=== PATIENT | male | born 1930 | race African-American/Black ===

== ENCOUNTER → 2016-08-10 | Outpatient (CLI) | payer MEDICARE, BC ==
--- NOTE | 2016-08-10 13:45 | XCELERA REPORT ---
[address] [address] Upper Extremity Venous Evaluation Name: KENN CANALES Age: 85 yrs Gender: Male : 1930 Patient Status: Outpatient Patient Location: Study Date: 08/10/2016 01:19 PM Procedure: Unilateral duplex scan of the left upper extremity veins was performed, including responses to compression and other maneuvers. Reason For Study: LUE PAIN SWELLING Ordering Physician: GONZALEZ KING Performed By: Gaby Joe Left Sided Venous Evaluation Normal vessel filling wall to wall, compression and augmentation as well as Colour flow down to the forearm veins. Interpretation Summary Normal compression, patency, spontaneous and phasic flow of the left upper extremity veins. : GONZALEZ KING > Duncan Valentin
== END ==
LOC: SP 12:52
PROVIDERS: ATTEND Internal Medicine Medical Oncology
DX: M79.602 Pain in left arm (principal); M79.89 Other specified soft tissue disorders
CPT/HCPCS: 93971

== ENCOUNTER 2016-10-28 11:32 | Inpatient (IN) | payer MEDICARE, BC ==
--- NOTE | 2016-10-28 12:51 | ER Document Report ---
ED Medical Screen (RME) - General Mode of Arrival: Ambulatory Information source: Patient, Relative - Niece TRAVEL OUTSIDE OF THE [place] IN LAST 30 DAYS: No - HPI Patient complains to provider of: Cough and weakness Associated Symptoms: Other - see notes above <TIMOTHY REYES - Last Filed: 10/28/16 21:33> <YOLANDACHRISTIANAKATHI - Last Filed: 10/28/16 21:35> - General Chief Complaint: Direct Admit / Private MD Stated Complaint: DIRECT ADMIT Notes: 86-year-old male presents to the ED accompanied by his niece who states that they were sent to radiology by Dr. Barrientos to receive a CT scan over concerns of possible pneumonia and possible lung cancer recurrence and was sent to the ED for direct admit after Dr. Barrientos examined the scan. The niece reports that the patient has a cough, weakness, and poor appetite. Patient denies any chest pain. (TIMOTHY REYES) - Related Data Allergies/Adverse Reactions: No Known Allergies Allergy (Verified 10/28/16 12:28) Past Medical History - General Information source: Patient - Social History Family history: Reviewed & Not Pertinent - Past Medical History Cardiac Medical History: Reports: Hx Hypertension Denies: Hx Heart Attack Pulmonary Medical History: Denies: Hx Asthma Neurological Medical History: Denies: Hx Cerebrovascular Accident, Hx Seizures Endocrine Medical History: Reports: Hx Hypothyroidism Renal/ Medical History: Denies: Hx Peritoneal Dialysis GI Medical History: Reports: Hx Colonoscopy. Denies: Hx Hepatitis, Hx Hiatal Hernia, Hx Ulcer Infectious Medical History: Denies: Hx Hepatitis Past Surgical History: Denies: Hx Open Heart Surgery, Hx Pacemaker <TIMOTHY REYES - Last Filed: 10/28/16 21:33> Review of Systems - Review of Systems Constitutional: No symptoms reported EENT: No symptoms reported Cardiovascular: No symptoms reported. denies: Chest pain Respiratory: See HPI, Cough Gastrointestinal: See HPI, Poor appetite Genitourinary: No symptoms reported Male Genitourinary: No symptoms reported Musculoskeletal: No symptoms reported Skin: No symptoms reported Hematologic/Lymphatic: No symptoms reported Neurological/Psychological: See HPI, Weakness -: Yes All other systems reviewed and negative <TIMOTHY REYES - Last Filed: 10/28/16 21:33> Physical Exam - General General appearance: Alert In distress: None - Respiratory Respiratory status: No respiratory distress. No: Cyanosis Breath sounds: Other - Crackles to the right lower lobe. No: Rhonchi, Wheezing - Cardiovascular Rhythm: Regular Heart sounds: Normal auscultation Murmur: No Friction rub: No Gallop: None auscultated <TIMOTHY REYES - Last Filed: 10/28/16 21:33> Course - Laboratory Result Diagrams: 10/28/16 13:17 10/28/16 13:17 <TIMOTHY REYES - Last Filed: 10/28/16 21:33> - Laboratory Result Diagrams: 10/28/16 13:17 10/28/16 13:17 <KATHI RICARDO - Last Filed: 10/28/16 21:35> - Re-evaluation Re-evalutation: 10/28/16 12:46 There are currently no beds available in [facility]. Will start inpatient orders as given by Dr. Barrientos. Patient coordinator is trying to get a bed in the ED for convenience. (TIMOTHY REYES) 10/28/16 13:50 Will check PT/INR as per request by radiology prior to procedure ordered by Dr. Barrientos. 10/28/16 21:34 Was stable to wait in the internal waiting room for a few hours however we did eventually transfer the patient to a bed in the main part of the emergency department on a monitor while still waiting for a bed upstairs. Correction to the scribe note above it should say patient coordinators trying to get a bed in the ICU for convenience. (KATHI RICARDO) - Vital Signs Vital signs: Temp Pulse Resp BP Pulse Ox 98.0 F 83 20 158/61 H 99 10/28/16 20:06 10/28/16 20:06 10/28/16 20:06 10/28/16 20:06 10/28/16 20:06 Scribe Documentation - Scribe Written by Fer:: Fer Beltrán, 10/28/2016 1252 acting as scribe for :: Wally <TIMOTHY REYES - Last Filed: 10/28/16 21:33>
[2016-10-28 13:27] LABS: ABSOLUTE BASOPHILS # (AUTO) 0.1 10^3/uL (0.0-0.2); ABSOLUTE EOSINOPHILS # (AUTO) 0.1 10^3/uL (0.0-0.6); ABSOLUTE LYMPHOCYTES (AUTO) 2.8 10^3/uL (0.5-4.7); ABSOLUTE MONOCYTES (AUTO) 0.9 10^3/uL (0.1-1.4); ABSOLUTE NEUT (AUTO) 8.2 10^3/uL (1.7-8.2); BASOPHILS % (AUTO) 0.8 % (0-2); EOSINOPHILS % (AUTO) 0.7 % (0-6); HEMATOCRIT 39.9 % (37.9-51.0); HEMOGLOBIN 13.1 g/dL (13.5-17.0); HGB HCT DIFFERENCE -0.6; LYMPHOCYTES % (AUTO) 22.9 % (13-45); MEAN CORPUSCULAR HEMOGLOBIN 30.4 pg (27.0-33.4); MEAN CORPUSCULAR HGB CONC 32.9 g/dL (32.0-36.0); MEAN CORPUSCULAR VOLUME 92 fl (80-97); MONOCYTES % (AUTO) 7.6 % (3-13); RED BLOOD COUNT 4.32 10^6/uL (4.35-5.55); RED CELL DISTRIBUTION WIDTH 13.5 % (11.5-14.0); WHITE BLOOD COUNT 12.1 10^3/uL (4.0-10.5)
[2016-10-28] MEDS ORDERED: LEVOFLOXACIN 750 MG/D5W RTU 750 MG/150 ML RTUPB IV ONE ×2 (13:30→21:00)
[2016-10-28 13:39] LABS: ALANINE AMINOTRANSFERASE 62 U/L (21-72); ALBUMIN 3.8 g/dL (3.5-5.0); ALKALINE PHOSPHATASE 102 U/L (38-126); ANION GAP 14 (5-19); ASPARTATE AMINO TRANSFERASE 37 U/L (17-59); BILIRUBIN,DIRECT 0.4 mg/dL (0.0-0.4); BILIRUBIN,TOTAL 0.5 mg/dL (0.2-1.3); BLOOD UREA NITROGEN 16 mg/dL (7-20); CALCIUM 9.5 mg/dL (8.4-10.2); CARBON DIOXIDE 23 mmol/L (22-30); CHLORIDE 106 mmol/L (98-107); CREATININE RESULT 1.15 mg/dL (0.52-1.25); GLUCOSE 122 mg/dL (75-110); LDH 610 U/L (313-618); POTASSIUM 4.5 mmol/L (3.6-5.0); SODIUM 143.3 mmol/L (137-145); TOTAL PROTEIN 7.7 g/dL (6.3-8.2)
[2016-10-28] MEDS ORDERED: CEFEPIME 2 GM/D5W RTU 2 GM/50 ML RTUPB IV ONE ×2 (15:00→20:00)
[2016-10-28 15:07] LABS: PROTHROMBIN TIME 15.1 SEC (11.4-15.4)
--- NOTE | 2016-10-29 08:31 | EKG REPORT ---
SEVERITY:- BORDERLINE ECG - SINUS RHYTHM ATRIAL PREMATURE COMPLEX BORDERLINE PROLONGED QT INTERVAL : Confirmed by: Sg Silva 29-Oct-2016 08:30:10
[2016-10-29] MEDS ORDERED: LEVOFLOXACIN 750 MG/D5W RTU 750 MG/150 ML RTUPB IV SCH ×2 (10:00→22:00)
--- NOTE | 2016-10-29 12:05 | RADIOLOGY REPORT (SQ) ---
EXAM DESCRIPTION: U/S CHEST COMPLETED DATE/TIME: 10/29/2016 11:34 am REASON FOR STUDY: PLEURAL EFFUSION COMPARISON: CT chest 10/28/2016 CT chest 11/14/2015 TECHNIQUE: Ultrasound of the right chest was performed to evaluate pleural effusion. LIMITATIONS: None. FINDINGS: On the right side, there is a trace pleural effusion, which is too small to safely access for diagnostic thoracentesis. No right-sided thoracentesis was performed. IMPRESSION: Trace right pleural fluid, too small to safely access for a diagnostic thoracentesis. TECHNICAL DOCUMENTATION: JOB ID: [id number] [employer]- All Rights Reserved
[2016-10-29] MEDS: CEFEPIME 2 GM/D5W RTU 2 GM/50 ML RTUPB IV SCH (17:07)
--- NOTE | 2016-10-29 18:00 | PDOC H&P ---
History of Present Illness Admission Date/PCP: 10/28/16 11:52 BECKA CENTENO MD History of Present Illness: KENN CANALES is a 86 year old male, he has a history of malignant neoplasm of the lung, he came to the office because of persistent cough for the last 1 month he said the cough was initially productive of sputum, he lost 10 pounds since the last office visit about a month ago. I was concerned about recurrent malignant neoplasm of the lung because of his history and the fact that he lost 10 pounds in a month, I requested a stat CT chest without contrast. CT chest showed chronic parenchymal changes in the upper lobes have increased in comparison to the prior study, there is more confluent density in both upper lobes there is bronchiectasis in both upper lobes. There is increased nodular density in the right upper lobe now measures 1.2 cm when compared to previously when it measures 1 cm. Also found was a small to moderate right pleural effusion which is new when compared to prior study there is a small left-sided pleural effusion. Patient was admitted directly into the hospital because of all these changes on the CT chest Past Medical History Cardiac Medical History: Reports: Hypertension Pulmonary Medical History: Reports: Chronic Obstructive Pulmonary Disease (COPD) Endocrine Medical History: Reports: Hypothyroidism Malignancy Medical History: Reports: Lung Cancer Past Surgical History Past Surgical History: Reports: Other - lobectomy Social History Smoking Status: Never Smoker Frequency of Alcohol Use: None Hx Recreational Drug Use: No Drugs: None Hx Prescription Drug Abuse: No Family History Family History: Reviewed & Not Pertinent Parental Family History Reviewed: Yes Children Family History Reviewed: Yes Sibling(s) Family History Reviewed.: Yes Medication/Allergy Home Medications: Amlodipine Besylate [Norvasc 10 mg Tablet] 10 mg PO DAILY 10/29/16 Cholecalciferol (Vitamin D3) [Vitamin D3 1000 Unit Tablet] 1,000 unit PO DAILY 10/29/16 Glimepiride [Amaryl] 2 mg PO DAILY 10/29/16 Iron Ps Cmplx/Vit B12/FA [Ferrex 150 Forte Capsule] 1 cap PO DAILY 10/29/16 Levothyroxine Sodium [Synthroid] 175 mcg PO DAILY 10/29/16 Losartan Potassium [Cozaar 50 mg Tablet] 50 mg PO DAILY 10/29/16 Pantoprazole Sodium [Protonix] 40 mg PO DAILY 10/29/16 Allergies/Adverse Reactions: No Known Allergies Allergy (Verified 10/28/16 12:28) Review of Systems Constitutional: PRESENT: weight loss Eyes: ABSENT: visual disturbances Ears: ABSENT: hearing changes Cardiovascular: ABSENT: chest pain, dyspnea on exertion, edema, orthropnea, palpitations Respiratory: PRESENT: cough, dyspnea, sputum Gastrointestinal: ABSENT: abdominal pain, constipation, diarrhea, hematemesis, hematochezia, nausea, vomiting Genitourinary: ABSENT: dysuria, hematuria Musculoskeletal: ABSENT: joint swelling Integumentary: ABSENT: rash, wounds Neurological: ABSENT: abnormal gait, abnormal speech, confusion, dizziness, focal weakness, syncope Psychiatric: ABSENT: anxiety, depression, homidical ideation, suicidal ideation Endocrine: ABSENT: cold intolerance, heat intolerance, menstrual abnormalities, polydipsia, polyuria Hematologic/Lymphatic: ABSENT: easy bleeding, easy bruising, lymphadenopathy Physical Exam Vital Signs: Temp Pulse Resp BP Pulse Ox 98.4 F 80 18 143/64 H 98 10/29/16 15:54 10/29/16 15:54 10/29/16 15:54 10/29/16 15:54 10/29/16 15:54 Intake & Output 10/28/16 10/29/16 10/30/16 06:59 06:59 06:59 Intake Total 582 240 Output Total 1050 300 Balance -468 -60 Weight 78.4 kg General appearance: PRESENT: no acute distress Head exam: PRESENT: atraumatic, normocephalic Eye exam: PRESENT: conjunctiva pink, EOMI, PERRLA Ear exam: PRESENT: normal external ear exam Mouth exam: PRESENT: moist, tongue midline Respiratory exam: PRESENT: rhonchi, wheezes Cardiovascular exam: PRESENT: RRR, +S1, +S2 GI/Abdominal exam: PRESENT: diminished bowel sounds Rectal exam: PRESENT: deferred Extremities exam: PRESENT: other - Left upper extremity lymphedema Neurological exam: PRESENT: alert, awake, oriented to person, oriented to place , oriented to time, oriented to situation, CN II-XII grossly intact. ABSENT: motor sensory deficit Psychiatric exam: PRESENT: appropriate affect, normal mood. ABSENT: homicidal ideation, suicidal ideation Skin exam: PRESENT: dry, intact, warm. ABSENT: cyanosis, rash Results Laboratory Results: 10/28/16 13:17 10/28/16 13:17 Impressions: Chest Ultrasound 10/29/16 00:00 IMPRESSION: Trace right pleural fluid, too small to safely access for a diagnostic thoracentesis. Assessment & Plan - Diagnosis (1) Pneumonia Qualifiers: Pneumonia type: due to unspecified organism Laterality: bilateral Lung location: unspecified part of lung Qualified Code(s): J18.9 - Pneumonia, unspecified organism Is this a current diagnosis for this admission?: YesPlan: The CT scan findings could represent pneumonia versus recurrent malignant neoplasm of the lung, he will be treated empirically with IV antibiotic for pneumonia he may need a PET scan, he may also need thoracentesis because of the findings of pleural effusion. (2) Malignant neoplasm of lung Qualifiers: Laterality: left Lung location: unspecified part of lung Qualified Code(s): C34.92 - Malignant neoplasm of unspecified part of left bronchus or lung Is this a current diagnosis for this admission?: Yes (3) Type 2 diabetes mellitus Qualifiers: Diabetes mellitus complication status: without complication Diabetes mellitus director long term care insulin use: without director long term care use Qualified Code(s): E11.9 - Type 2 diabetes mellitus without complications Is this a current diagnosis for this admission?: Yes (4) Hypothyroidism Qualifiers: Hypothyroidism type: acquired Qualified Code(s): E03.9 - Hypothyroidism, unspecified
--- NOTE | 2016-10-29 20:55 | PDOC PROGRESS REPORT ---
Subjective Progress Note for:: 10/29/16 Subjective:: Patient was admitted yesterday because of pneumonia versus malignant neoplasm of the lung Physical Exam Vital Signs: Temp Pulse Resp BP Pulse Ox 98.4 F 86 18 143/64 H 98 10/29/16 15:54 10/29/16 19:15 10/29/16 15:54 10/29/16 15:54 10/29/16 15:54 Intake & Output 10/28/16 10/29/16 10/30/16 06:59 06:59 06:59 Intake Total 582 340 Output Total 1050 300 Balance -468 40 Weight 78.4 kg General appearance: PRESENT: no acute distress Eye exam: PRESENT: PERRLA Respiratory exam: PRESENT: rhonchi Cardiovascular exam: PRESENT: +S1, +S2 GI/Abdominal exam: PRESENT: soft Neurological exam: PRESENT: alert, CN II-XII grossly intact Results Laboratory Results: 10/28/16 13:17 10/28/16 13:17 Impressions: Chest Ultrasound 10/29/16 00:00 IMPRESSION: Trace right pleural fluid, too small to safely access for a diagnostic thoracentesis. Assessment & Plan - Diagnosis (1) Pneumonia Qualifiers: Pneumonia type: due to unspecified organism Laterality: bilateral Lung location: unspecified part of lung Qualified Code(s): J18.9 - Pneumonia, unspecified organism Is this a current diagnosis for this admission?: Yes (2) Malignant neoplasm of lung Qualifiers: Laterality: left Lung location: unspecified part of lung Qualified Code(s): C34.92 - Malignant neoplasm of unspecified part of left bronchus or lung Is this a current diagnosis for this admission?: Yes (3) Type 2 diabetes mellitus Qualifiers: Diabetes mellitus complication status: without complication Diabetes mellitus senior care insulin use: without buttermaker helper use Qualified Code(s): E11.9 - Type 2 diabetes mellitus without complications Is this a current diagnosis for this admission?: Yes (4) Hypothyroidism Qualifiers: Hypothyroidism type: acquired Qualified Code(s): E03.9 - Hypothyroidism, unspecified - Plan Summary Plan Summary: She will continue IV antibiotic, ct chest will be order next week ,if there is improvement it may suggest infection ,but he may need to have a PET SCAN either way
[2016-10-30] MEDS ORDERED: DILTIAZEM HCL/D5W 125 MG/125 ML RTUINJ IV PRN (06:34)
--- NOTE | 2016-10-30 17:48 | EKG REPORT ---
SEVERITY:- ABNORMAL ECG - ATRIAL FIBRILLATION NONSPECIFIC T ABNORMALITIES, LATERAL LEADS BORDERLINE PROLONGED QT INTERVAL : Confirmed by: Sg Silva 30-Oct-2016 17:47:54
[2016-10-30] MEDS: CEFEPIME 2 GM/D5W RTU 2 GM/50 ML RTUPB IV SCH (18:13)
--- NOTE | 2016-10-30 19:58 | PDOC PROGRESS REPORT ---
Subjective Progress Note for:: 10/30/16 Subjective:: He developed paroxysmal atrial fibrillation with a rapid ventricular response this morning, he was started on Cardizem infusion for rate control. He have a living will and he expresses the desire to be a DNR. Physical Exam Vital Signs: Temp Pulse Resp BP Pulse Ox 98.9 F 87 18 126/76 H 96 10/30/16 16:31 10/30/16 18:00 10/30/16 16:31 10/30/16 18:00 10/30/16 16:31 Intake & Output 10/29/16 10/30/16 10/31/16 06:59 06:59 06:59 Intake Total 188 986 1432 Output Total 1050 7005 625 Balance -468 -935 513 Weight 78.4 kg 75.8 kg General appearance: PRESENT: no acute distress Eye exam: PRESENT: PERRLA Respiratory exam: PRESENT: rhonchi Cardiovascular exam: PRESENT: irregular rhythm, +S1, +S2, tachycardia GI/Abdominal exam: PRESENT: soft Neurological exam: PRESENT: alert, CN II-XII grossly intact Results Laboratory Results: 10/28/16 13:17 10/28/16 13:17 Impressions: Chest Ultrasound 10/29/16 00:00 IMPRESSION: Trace right pleural fluid, too small to safely access for a diagnostic thoracentesis. Assessment & Plan - Diagnosis (1) Pneumonia Qualifiers: Pneumonia type: due to unspecified organism Laterality: bilateral Lung location: unspecified part of lung Qualified Code(s): J18.9 - Pneumonia, unspecified organism Is this a current diagnosis for this admission?: YesPlan: Continue IV antibiotic (2) Malignant neoplasm of lung Qualifiers: Laterality: left Lung location: unspecified part of lung Qualified Code(s): C34.92 - Malignant neoplasm of unspecified part of left bronchus or lung Is this a current diagnosis for this admission?: Yes (3) Type 2 diabetes mellitus Qualifiers: Diabetes mellitus complication status: without complication Diabetes mellitus intermediate accountant insulin use: without senior living use Qualified Code(s): E11.9 - Type 2 diabetes mellitus without complications Is this a current diagnosis for this admission?: Yes (4) Hypothyroidism Qualifiers: Hypothyroidism type: acquired Qualified Code(s): E03.9 - Hypothyroidism, unspecified Is this a current diagnosis for this admission?: Yes (5) Paroxysmal atrial fibrillation with rapid ventricular response Is this a current diagnosis for this admission?: YesPlan: Start Cardizem infusion for rate control
[2016-10-30] MEDS ORDERED: DEXTROSE 50%-WATER 25 GM/50 ML DISP.SYRIN IV PRN ×2 (19:59)
[2016-10-30] MEDS ORDERED: GLUCAGON,HUMAN RECOMB 1 MG INJ IM PRN (19:59)
[2016-10-30] MEDS ORDERED: INSULIN LISPRO 100 UNIT/ML 3 ML VIAL SUBCUT PRN (19:59)
[2016-10-30] MEDS ORDERED: DEXTROSE 40% GEL 15 GM TUBE PO PRN ×2 (19:59)
[2016-10-30] MEDS ORDERED: CHOLECALCIFEROL (D3) 1,000 UNIT TABLET PO SCH (20:00)
[2016-10-30] MEDS ORDERED: VIT B12 PO SCH (20:00)
[2016-10-30] MEDS ORDERED: IRON PS CMPLX PO SCH (20:00)
[2016-10-30] MEDS ORDERED: [UNRECOGNIZED DRUG - OTHER] PO SCH (20:00)
[2016-10-30] MEDS ORDERED: (PENDING PHARMACY ID) (Levothyroxine Sodium [Synthroid] 175 MCG) PO SCH (20:00)
[2016-10-30] MEDS ORDERED: LOSARTAN POTASSIUM 50 MG TABLET PO ONE (21:00)
[2016-10-30] MEDS ORDERED: METOPROLOL SUCCINATE 50 MG TAB.SR.24H PO ONE (22:00)
[2016-10-30] MEDS: APIXABAN 5 MG TABLET PO SCH (22:47)
[2016-10-30] MEDS: LEVOFLOXACIN 750 MG/D5W RTU 750 MG/150 ML RTUPB IV SCH (22:47)
[2016-10-31] MEDS: APIXABAN 5 MG TABLET PO SCH ×2 (09:26→22:25)
[2016-10-31] MEDS: LEVOTHYROXINE SODIUM 0.1 MG TABLET PO SCH (09:27)
[2016-10-31] MEDS: METOPROLOL SUCCINATE 50 MG TAB.SR.24H PO SCH (09:27)
[2016-10-31] MEDS: LEVOTHYROXINE SODIUM 0.075 MG TABLET PO SCH (09:27)
[2016-10-31] MEDS: CHOLECALCIFEROL (D3) 1,000 UNIT TABLET PO SCH (09:28)
[2016-10-31] MEDS: IRON POLYSACCHARIDES COMPLEX 150 MG CAPSULE PO SCH (09:28)
[2016-10-31] MEDS: LOSARTAN POTASSIUM 50 MG TABLET PO SCH (09:28)
[2016-10-31] MEDS: LANSOPRAZOLE 30 MG TAB.RAP.DR PO SCH (09:29)
[2016-10-31 09:46] LABS: ABSOLUTE BASOPHILS # (AUTO) 0.1 10^3/uL (0.0-0.2); ABSOLUTE EOSINOPHILS # (AUTO) 0.1 10^3/uL (0.0-0.6); ABSOLUTE LYMPHOCYTES (AUTO) 2.5 10^3/uL (0.5-4.7); ABSOLUTE MONOCYTES (AUTO) 0.6 10^3/uL (0.1-1.4); ABSOLUTE NEUT (AUTO) 6.7 10^3/uL (1.7-8.2); BASOPHILS % (AUTO) 0.7 % (0-2); EOSINOPHILS % (AUTO) 0.8 % (0-6); HEMATOCRIT 40.6 % (37.9-51.0); HEMOGLOBIN 13.2 g/dL (13.5-17.0); MEAN CORPUSCULAR HEMOGLOBIN 29.8 pg (27.0-33.4); MEAN CORPUSCULAR HGB CONC 32.5 g/dL (32.0-36.0); MEAN CORPUSCULAR VOLUME 92 fl (80-97); MONOCYTES % (AUTO) 6.5 % (3-13); RED BLOOD COUNT 4.44 10^6/uL (4.35-5.55); RED CELL DISTRIBUTION WIDTH 13.3 % (11.5-14.0); WHITE BLOOD COUNT 10.1 10^3/uL (4.0-10.5)
[2016-10-31 10:05] LABS: ANION GAP 13 (5-19); BLOOD UREA NITROGEN 18 mg/dL (7-20); CALCIUM 9.6 mg/dL (8.4-10.2); CARBON DIOXIDE 23 mmol/L (22-30); CHLORIDE 104 mmol/L (98-107); CREATININE RESULT 1.17 mg/dL (0.52-1.25); GLUCOSE 158 mg/dL (75-110); POTASSIUM 4.7 mmol/L (3.6-5.0); SODIUM 140.4 mmol/L (137-145)
--- NOTE | 2016-10-31 10:17 | PDOC PROGRESS REPORT ---
Subjective Progress Note for:: 10/31/16 Subjective:: Patient is currently doing well patients off the Cardizem drip. Patient's denied any chest pain denied any shortness of the breath Physical Exam Vital Signs: Temp Pulse Resp BP Pulse Ox 98.5 F 83 18 149/69 H 99 10/31/16 07:10 10/31/16 07:10 10/31/16 07:10 10/31/16 07:10 10/31/16 07:10 Intake & Output 10/30/16 10/31/16 11/01/16 06:59 06:59 06:59 Intake Total 540 1438 Output Total 1475 925 Balance -935 513 Weight 75.8 kg 74.9 kg General appearance: PRESENT: no acute distress, well-developed, well-nourished Head exam: PRESENT: atraumatic, normocephalic Eye exam: PRESENT: conjunctiva pink, EOMI, PERRLA. ABSENT: scleral icterus Ear exam: PRESENT: normal external ear exam Mouth exam: PRESENT: moist, tongue midline Neck exam: PRESENT: full ROM. ABSENT: carotid bruit, JVD, lymphadenopathy, thyromegaly Respiratory exam: PRESENT: clear to auscultation juan miguel Cardiovascular exam: ABSENT: diastolic murmur, rubs, systolic murmur Pulses: PRESENT: normal dorsalis pedis pul, +2 pedal pulses bilateral Vascular exam: PRESENT: normal capillary refill GI/Abdominal exam: PRESENT: normal bowel sounds, soft. ABSENT: distended, guarding, mass, organolmegaly, rebound, tenderness Rectal exam: PRESENT: deferred Neurological exam: PRESENT: alert, awake, oriented to person, oriented to place , oriented to time, oriented to situation, CN II-XII grossly intact. ABSENT: motor sensory deficit Psychiatric exam: PRESENT: appropriate affect, normal mood. ABSENT: homicidal ideation, suicidal ideation Skin exam: PRESENT: dry, intact, warm. ABSENT: cyanosis, rash Results Laboratory Results: 10/31/16 09:37 10/31/16 09:37 10/31/16 10/31/16 09:37 09:37 WBC 10.1 RBC 4.44 Hgb 13.2 L Hct 40.6 MCV 92 MCH 29.8 MCHC 32.5 RDW 13.3 Plt Count 740 H Seg Neutrophils % 67.0 Lymphocytes % 25.0 Monocytes % 6.5 Eosinophils % 0.8 Basophils % 0.7 Absolute Neutrophils 6.7 Absolute Lymphocytes 2.5 Absolute Monocytes 0.6 Absolute Eosinophils 0.1 Absolute Basophils 0.1 Sodium 140.4 Potassium 4.7 Chloride 104 Carbon Dioxide 23 Anion Gap 13 BUN 18 Creatinine 1.17 Est GFR ( Amer) > 60 Est GFR (Non-Af Amer) 59 L Glucose 158 H Calcium 9.6 Impressions: Chest Ultrasound 10/29/16 00:00 IMPRESSION: Trace right pleural fluid, too small to safely access for a diagnostic thoracentesis. Assessment & Plan - Diagnosis (1) Pneumonia Qualifiers: Pneumonia type: due to unspecified organism Laterality: bilateral Lung location: unspecified part of lung Qualified Code(s): J18.9 - Pneumonia, unspecified organism Is this a current diagnosis for this admission?: YesPlan: Continues to IV antibiotic (2) Malignant neoplasm of lung Qualifiers: Laterality: left Lung location: unspecified part of lung Qualified Code(s): C34.92 - Malignant neoplasm of unspecified part of left bronchus or lung Is this a current diagnosis for this admission?: YesPlan: Follow with the oncology (3) Paroxysmal atrial fibrillation with rapid ventricular response Is this a current diagnosis for this admission?: YesPlan: Currently on Eliquis and a beta-maria del rosario (4) Type 2 diabetes mellitus Qualifiers: Diabetes mellitus complication status: without complication Diabetes mellitus marine oil terminal superintendent insulin use: without marine oil terminal superintendent use Qualified Code(s): E11.9 - Type 2 diabetes mellitus without complications Is this a current diagnosis for this admission?: YesPlan: Continues to current medications (5) Anemia Qualifiers: Anemia type: unspecified type Qualified Code(s): D64.9 - Anemia, unspecified Is this a current diagnosis for this admission?: YesPlan: Continues to monitor the patient's while he is on Eliquis (6) Hypothyroidism Qualifiers: Hypothyroidism type: acquired Qualified Code(s): E03.9 - Hypothyroidism, unspecified Is this a current diagnosis for this admission?: Yes - Time Time Spent with patient: 15-24 minutes Medications reviewed and adjusted accordingly: Yes Anticipated discharge: Home Within: Other - Inpatient Certification Medical Necessity: Need Close Monitoring Due to Risk of Patient Decompensation, Need for IV Antibiotics Post Hospital Care: D/C Full Roll Inspector Documentation - Plan Summary Plan Summary: Continues current medications discussed with the patient's family about the patient's current conditions
[2016-10-31] MEDS: CEFEPIME 2 GM/D5W RTU 2 GM/50 ML RTUPB IV SCH (18:16)
[2016-11-01 06:47] LABS: ABSOLUTE BASOPHILS # (AUTO) 0.1 10^3/uL (0.0-0.2); ABSOLUTE EOSINOPHILS # (AUTO) 0.1 10^3/uL (0.0-0.6); ABSOLUTE LYMPHOCYTES (AUTO) 2.6 10^3/uL (0.5-4.7); ABSOLUTE MONOCYTES (AUTO) 0.7 10^3/uL (0.1-1.4); ABSOLUTE NEUT (AUTO) 5.1 10^3/uL (1.7-8.2); BASOPHILS % (AUTO) 1.1 % (0-2); EOSINOPHILS % (AUTO) 1.3 % (0-6); HEMATOCRIT 39.7 % (37.9-51.0); HEMOGLOBIN 13.3 g/dL (13.5-17.0); HGB HCT DIFFERENCE 0.2; LYMPHOCYTES % (AUTO) 30.4 % (13-45); MEAN CORPUSCULAR HEMOGLOBIN 30.9 pg (27.0-33.4); MEAN CORPUSCULAR HGB CONC 33.5 g/dL (32.0-36.0); MEAN CORPUSCULAR VOLUME 92 fl (80-97); MONOCYTES % (AUTO) 7.9 % (3-13); RED BLOOD COUNT 4.31 10^6/uL (4.35-5.55); RED CELL DISTRIBUTION WIDTH 13.6 % (11.5-14.0); SEGMENTED NEUTROPHILS % (AUTO) 59.3 % (42-78); WHITE BLOOD COUNT 8.6 10^3/uL (4.0-10.5)
[2016-11-01 06:58] LABS: ANION GAP 10 (5-19); BLOOD UREA NITROGEN 24 mg/dL (7-20); CALCIUM 9.3 mg/dL (8.4-10.2); CARBON DIOXIDE 24 mmol/L (22-30); CHLORIDE 105 mmol/L (98-107); GLUCOSE 108 mg/dL (75-110); POTASSIUM 4.5 mmol/L (3.6-5.0); SODIUM 138.8 mmol/L (137-145)
[2016-11-01] MEDS: LEVOTHYROXINE SODIUM 0.1 MG TABLET PO SCH (10:48)
[2016-11-01] MEDS: LANSOPRAZOLE 30 MG TAB.RAP.DR PO SCH (10:48)
[2016-11-01] MEDS: METOPROLOL SUCCINATE 50 MG TAB.SR.24H PO SCH (10:48)
[2016-11-01] MEDS: LEVOTHYROXINE SODIUM 0.075 MG TABLET PO SCH (10:49)
[2016-11-01] MEDS: IRON POLYSACCHARIDES COMPLEX 150 MG CAPSULE PO SCH (10:49)
[2016-11-01] MEDS: LOSARTAN POTASSIUM 50 MG TABLET PO SCH (10:49)
[2016-11-01] MEDS: APIXABAN 5 MG TABLET PO SCH ×2 (10:49→21:23)
[2016-11-01] MEDS: CHOLECALCIFEROL (D3) 1,000 UNIT TABLET PO SCH (10:49)
--- NOTE | 2016-11-01 13:35 | PDOC PROGRESS REPORT ---
Subjective Progress Note for:: 11/01/16 Subjective:: Patient is currently doing well patients off the Cardizem drip. Patient's denied any chest pain denied any shortness of the breath Physical Exam Vital Signs: Temp Pulse Resp BP Pulse Ox 97.7 F 74 18 168/70 H 98 11/01/16 07:17 11/01/16 07:17 11/01/16 07:17 11/01/16 07:17 11/01/16 07:17 Intake & Output 10/31/16 11/01/16 11/02/16 06:59 06:59 06:59 Intake Total 1438 1797 Output Total 925 1425 Balance 513 372 Weight 74.9 kg General appearance: PRESENT: no acute distress, well-developed, well-nourished Head exam: PRESENT: atraumatic, normocephalic Eye exam: PRESENT: conjunctiva pink, EOMI, PERRLA. ABSENT: scleral icterus Ear exam: PRESENT: normal external ear exam Mouth exam: PRESENT: moist, tongue midline Neck exam: PRESENT: full ROM. ABSENT: carotid bruit, JVD, lymphadenopathy, thyromegaly Cardiovascular exam: PRESENT: RRR. ABSENT: diastolic murmur, rubs, systolic murmur Pulses: PRESENT: normal dorsalis pedis pul, +2 pedal pulses bilateral Vascular exam: PRESENT: normal capillary refill GI/Abdominal exam: PRESENT: normal bowel sounds, soft. ABSENT: distended, guarding, mass, organolmegaly, rebound, tenderness Rectal exam: PRESENT: deferred Neurological exam: PRESENT: alert, awake, oriented to person, oriented to place , oriented to time, oriented to situation, CN II-XII grossly intact. ABSENT: motor sensory deficit Psychiatric exam: PRESENT: appropriate affect, normal mood. ABSENT: homicidal ideation, suicidal ideation Skin exam: PRESENT: dry, intact, warm. ABSENT: cyanosis, rash Results Laboratory Results: 11/01/16 06:03 11/01/16 06:03 10/31/16 11/01/16 11/01/16 09:37 06:03 06:03 WBC 8.6 RBC 4.31 L Hgb 13.3 L Hct 39.7 MCV 92 MCH 30.9 MCHC 33.5 RDW 13.6 Plt Count 577 H Seg Neutrophils % 59.3 Lymphocytes % 30.4 Monocytes % 7.9 Eosinophils % 1.3 Basophils % 1.1 Absolute Neutrophils 5.1 Absolute Lymphocytes 2.6 Absolute Monocytes 0.7 Absolute Eosinophils 0.1 Absolute Basophils 0.1 Sodium 140.4 138.8 Potassium 4.7 4.5 Chloride 104 105 Carbon Dioxide 23 24 Anion Gap 13 10 BUN 18 24 H Creatinine 1.17 1.20 Est GFR ( Amer) > 60 > 60 Est GFR (Non-Af Amer) 59 L 57 L Glucose 158 H 108 Calcium 9.6 9.3 Impressions: Chest Ultrasound 10/29/16 00:00 IMPRESSION: Trace right pleural fluid, too small to safely access for a diagnostic thoracentesis. Assessment & Plan - Diagnosis (1) Pneumonia Qualifiers: Pneumonia type: due to unspecified organism Laterality: bilateral Lung location: unspecified part of lung Qualified Code(s): J18.9 - Pneumonia, unspecified organism Is this a current diagnosis for this admission?: YesPlan: Continues to IV antibiotic (2) Malignant neoplasm of lung Qualifiers: Laterality: left Lung location: unspecified part of lung Qualified Code(s): C34.92 - Malignant neoplasm of unspecified part of left bronchus or lung Is this a current diagnosis for this admission?: YesPlan: Follow with the oncology (3) Paroxysmal atrial fibrillation with rapid ventricular response Is this a current diagnosis for this admission?: YesPlan: Currently on Eliquis and a beta-maria del rosario (4) Type 2 diabetes mellitus Qualifiers: Diabetes mellitus complication status: without complication Diabetes mellitus assisted insulin use: without termite control representative use Qualified Code(s): E11.9 - Type 2 diabetes mellitus without complications Is this a current diagnosis for this admission?: YesPlan: Continues to current medications (5) Anemia Qualifiers: Anemia type: unspecified type Qualified Code(s): D64.9 - Anemia, unspecified Is this a current diagnosis for this admission?: YesPlan: Continues to monitor the patient's while he is on Eliquis (6) Hypothyroidism Qualifiers: Hypothyroidism type: acquired Qualified Code(s): E03.9 - Hypothyroidism, unspecified Is this a current diagnosis for this admission?: Yes - Time Time Spent with patient: 15-24 minutes Medications reviewed and adjusted accordingly: Yes Within: Other - Inpatient Certification Medical Necessity: Need Close Monitoring Due to Risk of Patient Decompensation Post Hospital Care: D/C [employer] Documentation - cont curr med
[2016-11-01] MEDS: CEFEPIME 2 GM/D5W RTU 2 GM/50 ML RTUPB IV SCH (18:00)
[2016-11-01] MEDS: LEVOFLOXACIN 750 MG/D5W RTU 750 MG/150 ML RTUPB IV SCH (21:23)
[2016-11-02 06:34] LABS: HEMOGLOBIN 12.6 g/dL (13.5-17.0); HGB HCT DIFFERENCE -0.2; MEAN CORPUSCULAR HEMOGLOBIN 30.5 pg (27.0-33.4); MEAN CORPUSCULAR HGB CONC 33.2 g/dL (32.0-36.0); MEAN CORPUSCULAR VOLUME 92 fl (80-97); RED BLOOD COUNT 4.14 10^6/uL (4.35-5.55); WHITE BLOOD COUNT 8.2 10^3/uL (4.0-10.5)
[2016-11-02 06:42] LABS: PROTHROMBIN TIME 16.5 SEC (11.4-15.4)
[2016-11-02 06:49] LABS: ANION GAP 10 (5-19); BLOOD UREA NITROGEN 22 mg/dL (7-20); CALCIUM 9.4 mg/dL (8.4-10.2); CARBON DIOXIDE 26 mmol/L (22-30); CHLORIDE 103 mmol/L (98-107); CREATININE RESULT 1.15 mg/dL (0.52-1.25); GLUCOSE 112 mg/dL (75-110); POTASSIUM 4.4 mmol/L (3.6-5.0); SODIUM 139.1 mmol/L (137-145)
[2016-11-02] MEDS: LANSOPRAZOLE 30 MG TAB.RAP.DR PO SCH (08:42)
[2016-11-02] MEDS: IRON POLYSACCHARIDES COMPLEX 150 MG CAPSULE PO SCH (10:09)
[2016-11-02] MEDS: METOPROLOL SUCCINATE 50 MG TAB.SR.24H PO SCH (10:09)
[2016-11-02] MEDS: LOSARTAN POTASSIUM 50 MG TABLET PO SCH (10:10)
[2016-11-02] MEDS: CHOLECALCIFEROL (D3) 1,000 UNIT TABLET PO SCH (10:10)
[2016-11-02] MEDS: LEVOTHYROXINE SODIUM 0.1 MG TABLET PO SCH (10:10)
[2016-11-02] MEDS: LEVOTHYROXINE SODIUM 0.075 MG TABLET PO SCH (10:10)
[2016-11-02] MEDS: APIXABAN 5 MG TABLET PO SCH ×2 (10:26→22:37)
--- NOTE | 2016-11-02 15:24 | RADIOLOGY REPORT (SQ) ---
EXAM DESCRIPTION: CT CHEST WITH COMPLETED DATE/TIME: 11/02/2016 3:05 pm REASON FOR STUDY: lung cancer COMPARISON: 10/28/2016 and 11/14/2015. TECHNIQUE: CT scan of the chest performed using helical scanning technique with dynamic intravenous contrast injection. Images reviewed with lung, soft tissue and bone windows. Reconstructed coronal and sagittal MPR images reviewed. All images stored on PACS. All CT scanners at this facility use dose modulation, iterative reconstruction, and/or weight based d osing when appropriate to reduce radiation dose to as low as reasonably achievable (ALARA). [facility]: Dose Right [facility]: CareDose [facility]: Dose Right [facility]: Teradose 4D [facility]: [employer] CONTRAST TYPE AND DOSE: contrast/concentration: Isovue 370.00 mg/ml; Total Contrast Delivered: 77.7 ml; Total Saline Delivered: 20.0 ml RENAL FUNCTION: BUN 22 creatinine 1.15. RADIATION DOSE: Up-to-date CT equipment and radiation dose reduction techniques were employed. CTDIv ol: 7.3 mGy. DLP: 267 mGy-cm. . LIMITATIONS: None. FINDINGS: LUNGS AND PLEURA: The small pleural effusions seen on the recent study are no longer prese nt. Again seen are chronic changes with scarring and bronchiectasis particularly in the upper lobes. Masses in the right upper lobe measuring 1.5 cm (series 4, image 33) and 1.3 cm (series 4 image 38) . These are slightly larger when compared to the previous study in October 2015. HILAR AND MEDIASTINAL STRUCTURES: No identified masses or abnormal nodes. HEART AND VASCULAR STRUCTURES: No aneurysm or dissection. No central pulmonary emboli. No pericardi al effusion. HARDWARE: None in the chest. UPPER ABDOMEN: No significant findings. Limited exam. THYROID AND OTHER SOFT TISSUES: No masses. No adenopathy. BONES: No significant finding. OTHER: No other significant finding. IMPRESSION: BILATERAL PLEURAL EFFUSIONS HAVE RESOLVED. CHRONIC SCARRING AND BRONCHIECTASIS PRIMARIL Y IN THE UPPER LOBES. RIGHT UPPER LOBE MASSES WHICH HAVE INCREASED IN SIZE SLIGHTLY SINCE OCTOBER 2015. IF CLINICALLY INDICATED, PET SCAN MAY BE HELPFUL FOR FURTHER EVALUATION. TECHNICAL DOCUMENTATION: JOB ID: [id number] Quality ID # [id number]: Final reports with documentation of one or more dose reduction techniques (e.g., Au tomated exposure control, adjustment of the mA and/or kV according to patient size, use of iterative reconstruction technique) 2010 [employer]- All Rights Reserved
[2016-11-02] MEDS: CEFEPIME 2 GM/D5W RTU 2 GM/50 ML RTUPB IV SCH (17:24)
--- NOTE | 2016-11-02 19:36 | PDOC PROGRESS REPORT ---
Subjective Progress Note for:: 11/02/16 Subjective:: Patient was seen by the bedside, he had CT chest today ,there is no significant change from the previous , he will still require a PET scan Physical Exam Vital Signs: Temp Pulse Resp BP Pulse Ox 98.6 F 64 20 136/64 H 95 11/02/16 16:26 11/02/16 16:26 11/02/16 16:26 11/02/16 16:26 11/02/16 16:26 Intake & Output 11/01/16 11/02/16 11/03/16 06:59 06:59 06:59 Intake Total 1797 2229 630 Output Total 1425 1675 300 Balance 372 554 330 Weight 73.9 kg General appearance: PRESENT: no acute distress Respiratory exam: PRESENT: clear to auscultation juan miguel Cardiovascular exam: PRESENT: +S1, +S2 GI/Abdominal exam: PRESENT: soft Neurological exam: PRESENT: alert, CN II-XII grossly intact Results Laboratory Results: 11/02/16 05:58 11/02/16 05:58 11/02/16 11/02/16 05:58 05:58 WBC 8.2 RBC 4.14 L Hgb 12.6 L Hct 38.0 MCV 92 MCH 30.5 MCHC 33.2 RDW 14.0 Plt Count 586 H Sodium 139.1 Potassium 4.4 Chloride 103 Carbon Dioxide 26 Anion Gap 10 BUN 22 H Creatinine 1.15 Est GFR ( Amer) > 60 Est GFR (Non-Af Amer) > 60 Glucose 112 H Calcium 9.4 Impressions: Chest Ultrasound 10/29/16 00:00 IMPRESSION: Trace right pleural fluid, too small to safely access for a diagnostic thoracentesis. Chest CT 11/02/16 00:00 IMPRESSION: BILATERAL PLEURAL EFFUSIONS HAVE RESOLVED. CHRONIC SCARRING AND BRONCHIECTASIS PRIMARILY IN THE UPPER LOBES. RIGHT UPPER LOBE MASSES WHICH HAVE INCREASED IN SIZE SLIGHTLY SINCE OCTOBER 2015. IF CLINICALLY INDICATED, PET SCAN MAY BE HELPFUL FOR FURTHER EVALUATION. Assessment & Plan - Diagnosis (1) Pneumonia Qualifiers: Pneumonia type: due to unspecified organism Laterality: bilateral Lung location: unspecified part of lung Qualified Code(s): J18.9 - Pneumonia, unspecified organism Is this a current diagnosis for this admission?: Yes (2) Malignant neoplasm of lung Qualifiers: Laterality: left Lung location: unspecified part of lung Qualified Code(s): C34.92 - Malignant neoplasm of unspecified part of left bronchus or lung Is this a current diagnosis for this admission?: Yes (3) Type 2 diabetes mellitus Qualifiers: Diabetes mellitus complication status: without complication Diabetes mellitus tow picker insulin use: without custodial use Qualified Code(s): E11.9 - Type 2 diabetes mellitus without complications Is this a current diagnosis for this admission?: Yes (4) Hypothyroidism Qualifiers: Hypothyroidism type: acquired Qualified Code(s): E03.9 - Hypothyroidism, unspecified Is this a current diagnosis for this admission?: Yes (5) Paroxysmal atrial fibrillation with rapid ventricular response Is this a current diagnosis for this admission?: Yes - Plan Summary Plan Summary: Continue IV antibiotic, PET scan to be ordered
[2016-11-03 06:13] LABS: ANION GAP 12 (5-19); BLOOD UREA NITROGEN 23 mg/dL (7-20); CALCIUM 9.7 mg/dL (8.4-10.2); CARBON DIOXIDE 24 mmol/L (22-30); CHLORIDE 104 mmol/L (98-107); CREATININE RESULT 1.14 mg/dL (0.52-1.25); GLUCOSE 108 mg/dL (75-110); POTASSIUM 5.3 mmol/L (3.6-5.0)
[2016-11-03] MEDS: LANSOPRAZOLE 30 MG TAB.RAP.DR PO SCH (08:10)
[2016-11-03] MEDS: METOPROLOL SUCCINATE 50 MG TAB.SR.24H PO SCH (09:08)
[2016-11-03] MEDS: LOSARTAN POTASSIUM 50 MG TABLET PO SCH (09:08)
[2016-11-03] MEDS: LEVOTHYROXINE SODIUM 0.075 MG TABLET PO SCH (09:08)
[2016-11-03] MEDS: LEVOTHYROXINE SODIUM 0.1 MG TABLET PO SCH (09:08)
[2016-11-03] MEDS: IRON POLYSACCHARIDES COMPLEX 150 MG CAPSULE PO SCH (09:08)
[2016-11-03] MEDS: CHOLECALCIFEROL (D3) 1,000 UNIT TABLET PO SCH (09:08)
[2016-11-03] MEDS: APIXABAN 5 MG TABLET PO SCH (09:09)
[2016-11-03] MEDS: CEFEPIME 2 GM/D5W RTU 2 GM/50 ML RTUPB IV SCH (17:48)
--- NOTE | 2016-11-03 18:04 | PDOC DISCHARGE SUMMARY ---
General - Admit/Disc Date/PCP Admission Date/Primary Care Provider: 10/28/16 11:52 BECKA CENTENO MD Discharge Date: 11/03/16 - Discharge Diagnosis (1) Pneumonia Is this a current diagnosis for this admission?: Yes (2) Malignant neoplasm of lung Is this a current diagnosis for this admission?: Yes (3) Type 2 diabetes mellitus Is this a current diagnosis for this admission?: Yes (4) Hypothyroidism Is this a current diagnosis for this admission?: Yes (5) Paroxysmal atrial fibrillation with rapid ventricular response Is this a current diagnosis for this admission?: Yes - Additional Information Discharge Diet: Diabetic Discharge Activity: Activity As Tolerated Home Medications: Cholecalciferol (Vitamin D3) [Vitamin D3 1000 Unit Tablet] 1,000 unit PO DAILY 10/29/16 Glimepiride [Amaryl] 2 mg PO DAILY 10/29/16 Iron Ps Cmplx/Vit B12/FA [Ferrex 150 Forte Capsule] 1 cap PO DAILY 10/29/16 Levothyroxine Sodium [Synthroid] 175 mcg PO DAILY 10/29/16 Losartan Potassium [Cozaar 50 mg Tablet] 50 mg PO DAILY 10/29/16 Pantoprazole Sodium [Protonix] 40 mg PO DAILY 10/29/16 Apixaban [Eliquis 5 mg Tablet] 5 mg PO Q12 #60 tablet 11/03/16 Metoprolol Succinate [Toprol Xl 50 mg Tab.sr] 50 mg PO DAILY #90 tab.sr.24h History of Present Illness History of Present Illness: KENN CANALES is a 86 year old male, he has a history of malignant neoplasm of the lung, he came to the office because of persistent cough for the last 1 month he said the cough was initially productive of sputum, he lost 10 pounds since the last office visit about a month ago. I was concerned about recurrent malignant neoplasm of the lung because of his history and the fact that he lost 10 pounds in a month, I requested a stat CT chest without contrast. CT chest showed chronic parenchymal changes in the upper lobes have increased in comparison to the prior study, there is more confluent density in both upper lobes there is bronchiectasis in both upper lobes. There is increased nodular density in the right upper lobe now measures 1.2 cm when compared to previously when it measures 1 cm. Also found was a small to moderate right pleural effusion which is new when compared to prior study there is a small left-sided pleural effusion. Patient was admitted directly into the hospital because of all these changes on the CT chest Hospital Course Hospital Course: He was admitted for management of pneumonia he presented to the office with shortness of breath ,weight loss and cough,a CT scan of the chest was done it showed masses in the right upper lobe,which was slightly increased, there was area of consolidation that suggest pneumonia, he was treated with IV antibiotic , Levaquin and cefepime. He developed Paroxysmal atrial fibrillation,rate controlled was achieved with IV cardizem and this was transitioned to PO metoprolol. He was also started on anticoagulant Eliquis. He will need outpatient PET scan because of the possibility that the masses found on the CT scan could represent recurrent neoplasm. On admission he had pleural effusion thoracentesis attempted but the pleural effusion was small. The repeapt CT scan of the chest that was done demonstrated that the pleural effusion has resolved. Physical Exam Vital Signs: Temp Pulse Resp BP Pulse Ox 98.3 F 72 12 144/55 H 96 11/03/16 15:22 11/03/16 15:22 11/03/16 15:22 11/03/16 15:22 11/03/16 15:22 Intake & Output 11/02/16 11/03/16 11/04/16 06:59 06:59 06:59 Intake Total 2229 1030 591 Output Total 1675 875 250 Balance 554 155 341 Weight 73.9 kg 73.1 kg General appearance: PRESENT: no acute distress Eye exam: PRESENT: PERRLA Respiratory exam: PRESENT: clear to auscultation juan miguel Cardiovascular exam: PRESENT: +S1, +S2 GI/Abdominal exam: PRESENT: soft Neurological exam: PRESENT: alert, CN II-XII grossly intact Results Laboratory Results: 11/02/16 05:58 11/03/16 05:10 11/03/16 05:10 Sodium 140.0 Potassium 5.3 H Chloride 104 Carbon Dioxide 24 Anion Gap 12 BUN 23 H Creatinine 1.14 Est GFR ( Amer) > 60 Est GFR (Non-Af Amer) > 60 Glucose 108 Calcium 9.7 Impressions: Chest Ultrasound 10/29/16 00:00 IMPRESSION: Trace right pleural fluid, too small to safely access for a diagnostic thoracentesis. Chest CT 11/02/16 00:00 IMPRESSION: BILATERAL PLEURAL EFFUSIONS HAVE RESOLVED. CHRONIC SCARRING AND BRONCHIECTASIS PRIMARILY IN THE UPPER LOBES. RIGHT UPPER LOBE MASSES WHICH HAVE INCREASED IN SIZE SLIGHTLY SINCE OCTOBER 2015. IF CLINICALLY INDICATED, PET SCAN MAY BE HELPFUL FOR FURTHER EVALUATION.
[2016-11-03 18:24] VITALS: BP 148/81
== END 2016-11-03 18:44 | disposition home or self-care (01) | DRG 190 ==
LOC: ER 11:32 → EH 11:52 → 3W 18:08
PROVIDERS: ADMIT Internal Medicine; ATTEND Internal Medicine
DX: J44.0 Chronic obstructive pulmonary disease with (acute) lower respiratory infection (principal); J18.9 Pneumonia, unspecified organism; J90 Pleural effusion, not elsewhere classified; R63.4 Abnormal weight loss; R91.8 Other nonspecific abnormal finding of lung field; Z85.118 Personal history of other malignant neoplasm of bronchus and lung; I10 Essential (primary) hypertension; E03.9 Hypothyroidism, unspecified; Z90.2 Acquired absence of lung [part of]; E11.9 Type 2 diabetes mellitus without complications; I48.0 Paroxysmal atrial fibrillation; Z66 Do not resuscitate; D64.9 Anemia, unspecified
CPT/HCPCS: 36415; 71250; 71260; 76604; 80048; 80076; 82962; 83615; 85025; 85027; 85610; 93005; 93010; 99283; J0692; J1956; J3490

== ENCOUNTER → 2016-10-28 | Outpatient (CLI) | payer MEDICARE, BC ==
--- NOTE | 2016-10-28 10:25 | RADIOLOGY REPORT (SQ) ---
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 TECHNIQUE: CT scan performed of the chest without intravenous contrast. Images reviewed with lung, soft tissue and bone windows. Reconstructed coronal and sagittal MPR images reviewed. All images st ored on PACS. All CT scanners at this facility use dose modulation, iterative reconstruction, and/or weight based d osing when appropriate to reduce radiation dose to as low as reasonably achievable (ALARA). [facility]: Dose Right [facility]: CareDose [facility]: Dose Right [facility]: Teradose 4D [facility]: Smart Provade RADIATION DOSE: Up-to-date CT equipment and radiation dose reduction techniques were employed. CTDIv ol: 11.9 mGy. DLP: 410 mGy-cm. mGy. LIMITATIONS: No technical limitations. FINDINGS: LUNGS AND PLEURA: The chronic parenchymal changes noted in the upper lobes have increased in comparison to the prior study. There is more confluent density seen both upper lobes. There is b ronchiectasis noted in both upper lobes secondary to the chronic changes. Could be related to postra diation changes the recurrent disease cannot be excluded. There is a increasing the nodular density seen in the right upper lobe now measuring approximate 1.3 cm compared to 1 cm on the prior study. C entrilobular emphysematous disease noted. A small to moderate right-sided pleural effusion which is new in comparison the prior study. There is a small left-sided pleural effusion. No other new nodul ar opacities are identified. No focal consolidations. HILAR AND MEDIASTINAL STRUCTURES: No identified masses or abnormal nodes. No obvious aneurysm. HEART AND VASCULAR STRUCTURES: No aneurysm. Calcific atherosclerosis of the aorta noted. No pericar dial effusion. UPPER ABDOMEN: No significant findings. Limited exam. THYROID AND OTHER SOFT TISSUES: No masses. No adenopathy. BONES: No acute osseous abnormality. No destructive bony changes. Degenerative changes noted throug hout the spine. Stable chronic wedge deformity of L1, similar to prior study though not completely e valuated on this study. . HARDWARE: None in the chest. OTHER: No other significant findings. IMPRESSION: There has been interval progression of the confluent densities seen in both upper lobes in comparison to prior study. Multiple new nodular masslike lesions are seen in the right upper lobe in comparison the prior study. There is also increased consolidation seen in the left upper lobe in comparison the prior study. These new nodular opacities could represent recurrent disease versus me tastasis versus benign nodules. Chronic bronchiectatic changes noted in both upper lobes. There is a small to moderate right-sided pleural effusion which is new in comparison the prior study. There i s a small left-sided pleural effusion which is also new in comparison the prior study. TECHNICAL DOCUMENTATION: JOB ID: [id number] Quality ID # [id number]: Final reports with documentation of one or more dose reduction techniques (e.g., Au tomated exposure control, adjustment of the mA and/or kV according to patient size, use of iterative reconstruction technique) 2010 [employer]- All Rights Reserved
== END ==
LOC: RAD 09:44
PROVIDERS: ATTEND Internal Medicine
DX: C34.90 Malignant neoplasm of unspecified part of unspecified bronchus or lung (principal)
CPT/HCPCS: 71250

== ENCOUNTER → 2016-11-20 | Outpatient (CLI) | payer MEDICARE, BC ==
--- NOTE | 2016-11-23 11:06 | RADIOLOGY REPORT (SQ) ---
EXAM DESCRIPTION: PET CT SKULL/THIGH COMPLETED DATE/TIME: 11/20/2016 4:05 pm REASON FOR STUDY: LUNG CA (C34.12) C34.12 MALIGNANT NEOPLASM OF UPPER LOBE, LEFT BRONCHUS OR RUTHIE COMPARISON: CT abdomen pelvis 07/03/2013, 11/13/2015 CT chest 11/14/2015, 10/28/2016, 11/02/2016 RADIONUCLIDE AND DOSE: 11 mCi F18 FDG The route of agent administration: Intravenous FASTING BLOOD SUGAR: 100 mg/dl CONTRAST TYPE AND DOSE: No CT contrast given. TECHNIQUE: Blood glucose level was verified. Above dose of FDG was injected intravenously. 2-D seg mented attenuation correction images were obtained from the base of the skull to the midthighs. Nonc ontrast CT images were obtained for attenuation correction and fusion with emission images. CT image s were performed without oral or intravenous contrast and are not sensitive for parenchymal lesions. A series of overlapping emission PET images were obtained. Images reviewed and manipulated at [facility] work station by the radiologist. Images stored on PACS. LIMITATIONS: None. FINDINGS: HEAD AND NECK: No areas of abnormal metabolic activity in the soft tissues of the head and neck. 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 There is metabolic activity in the treated lung, with SUV 2.3 which is at baseline. The previously mentioned 1.5 cm and 1.3 cm right upper lobe nodules are stable in size and non metabo lic, benign. There is a subcentimeter right hilar lymph node with SUV just above baseline 2.6, nonspecific. No pleural effusions. No pneumothorax. Moderate changes of obstructive lung disease at the apices. ABDOMEN AND PELVIS: No areas of abnormal metabolic activity in the abdomen or pelvis. Expected physi ologic activity is present in the genitourinary system and bowel. PROXIMAL LOWER EXTREMITIES: No areas of abnormal metabolic activity in the soft tissues of the lower extremities. BONES: No abnormal metabolic activity in the visualized skeleton. ADDITIONAL CT FINDINGS: Post splenectomy. Atherosclerotic calcification carotid bifurcations, me[place] ry arteries. Hiatal hernia. Diffuse degenerative changes throughout the spine OTHER: Liver activity 2.3 SUV, blood pool activity 1.9 SUV IMPRESSION: No worrisome hypermetabolic lesions in the chest given history of lung cancer TECHNICAL DOCUMENTATION: JOB ID: [id number] [facility] [employer]- All Rights Reserved
== END ==
LOC: RAD 13:44
PROVIDERS: ATTEND Internal Medicine Medical Oncology
DX: C34.12 Malignant neoplasm of upper lobe, left bronchus or lung (principal)
CPT/HCPCS: 78815; A9552

== ENCOUNTER → 2017-04-12 | Outpatient (CLI) | payer MEDICARE, BC ==
--- NOTE | 2017-04-12 13:19 | RADIOLOGY REPORT (SQ) ---
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 TECHNIQUE: Dynamic and static grayscale images acquired of the kidneys and bladder and recorded on P ACS. Additional selected color Doppler and spectral images recorded. LIMITATIONS: None. FINDINGS: RIGHT KIDNEY: Normal size. Normal echogenicity. No solid or suspicious masses. No hydrone phrosis. No calcifications. LEFT KIDNEY: Normal size. Normal echogenicity. No solid or overtly suspicious masses. Ovoid hypoech oic upper and lower pole deep lesions, likely representing cysts. Difficult to further image given d epth. No hydronephrosis. No calcifications. BLADDER: No masses. OTHER FINDINGS: Prostate enlarged, nearly 4 cm maximally. IMPRESSION: Probable renal cysts on the left. No evidence of urinary obstruction. Prostate enlarge ment. TECHNICAL DOCUMENTATION: JOB ID: [id number] [employer]- All Rights Reserved
== END ==
LOC: RAD 10:42
PROVIDERS: ATTEND Internal Medicine
DX: N18.3 Chronic kidney disease, stage 3 (moderate) (principal)
CPT/HCPCS: 76770

== ENCOUNTER → 2017-05-11 | Outpatient (CLI) | payer MEDICARE, BC ==
--- NOTE | 2017-05-11 09:37 | RADIOLOGY REPORT (SQ) ---
EXAM DESCRIPTION: HIP BILATERAL COMPLETED DATE/TIME: 05/11/2017 9:25 am REASON FOR STUDY: M25.551 PAIN IN RIGHT HIP M25.552 PAIN IN LEFT HIP M25.551 PAIN IN RIGHT HIP M25. 552 PAIN IN LEFT HIP COMPARISON: None. NUMBER OF VIEWS: Two views. TECHNIQUE: AP pelvis and additional frog-leg view of the right and left hip. LIMITATIONS: None. FINDINGS: MINERALIZATION: Normal. RIGHT HIP: Moderate osteoarthritis. No fracture or dislocation. No worrisome bone lesions. LEFT HIP: Moderate osteoarthritis. No fracture or dislocation. No worrisome bone lesions. PUBIS AND ISCHIUM: No fracture. PELVIS: No fracture. SACRUM: No fracture or dislocation. No worrisome bone lesions. LOWER LUMBAR SPINE: No fracture or dislocation. No worrisome bone lesions. Mild degenerative disc di sease. SOFT TISSUES: No findings. OTHER: Penile prosthesis visualized. IMPRESSION: MODERATE OSTEOARTHRITIS OF THE HIPS WITHOUT FRACTURE OR SUSPICIOUS OSSEOUS LESION. TECHNICAL DOCUMENTATION: JOB ID: [id number] [employer]- All Rights Reserved
== END ==
LOC: RAD 08:59
PROVIDERS: ATTEND Internal Medicine
DX: M25.551 Pain in right hip (principal); M25.552 Pain in left hip; M16.0 Bilateral primary osteoarthritis of hip
CPT/HCPCS: 73522